=== PATIENT | female | born 1980 | race Caucasian/White ===

== ENCOUNTER 2022-03-22 11:17 | Outpatient (CLI) | payer BC, SELFPAY | END 2022-03-22 11:18 | disposition home or self-care (01) | PROVIDERS: PCP Physician Assistant Medical; Visit Provider Physician Assistant | DX: R10.2 Pelvic and perineal pain (principal); R30.0 Dysuria; R35.0 Frequency of micturition; N39.0 Urinary tract infection, site not specified | CPT/HCPCS: 87086; 87186 ==

== ENCOUNTER 2023-02-07 10:47 | Outpatient (CLI) | payer BC, SELFPAY | END 2023-02-07 10:48 | disposition home or self-care (01) | PROVIDERS: PCP Physician Assistant Medical; Visit Provider Physician Assistant | DX: R53.83 Other fatigue (principal); D64.9 Anemia, unspecified | CPT/HCPCS: 82306; 82728; 83520; 83540; 83550; 84443 ==